=== PATIENT | female | born 1975 | race Caucasian/White ===

== ENCOUNTER 2016-08-17 18:57 | Inpatient (IN) | payer OTHER ==
[~2016-08-17] VITALS: Ht 170.2 cm; Wt 115.7 kg
[2016-08-17] VITALS (7 sets, daily range): BP systolic 111–132; BP diastolic 58–83; PULSE 85–95; RESP 14–24; O2SAT 97–98
[2016-08-17 19:09] LABS: BASOPHILS % (AUTO) 0.2 % (0-3); EOSINOPHILS % (AUTO) 3.1 % (0-5); MONOCYTES % (AUTO) 8.7 % (4-12); Mean Corpuscular Volume 84.5 fL (81-100); Platelet Count 295 bil/L (150-400)
--- NOTE | 2016-08-17 19:27 | ED.REPORT ---
HPI-Chest Pain 40 and Over Date of Service August 17, 2016 ED Provider: Keyon Cao MD 41 year old female with a history of HTN. hyperlipidemia, DM and former smoker who presents to the ER with waxing and waning chest pain that has been present since 0700 this AM. She describes this is 4/10 "heaviness" which improves with rest. The pain radiates to the neck and L arm. Pt has been ill for the next month. Additional symptoms include intermittent SOB, nausea, lightheadedness and dizziness. Pt has no hx of CAD. Pt was seen at urgent care and was referred to the ER. At urgent care she had a normal ECG. She was given 324 ASA and 3 spray SL nitro with moderate improvement in symptoms. Pt has family history of stroke. Nursing Notes Stated Complaint: CHEST PAIN Chief Complaint: Chest Pain Nursing Notes Reviewed: Yes Allergies: Coded Allergies: No Known Allergies (Unverified , 08/17/16) General Time Seen by MD: 19:09 Chief Complaint Chest pain Hx Obtained From: Patient, EMS Arrived By: Ambulance Sudden in Onset?: No Onset Occurred: 9 - 12 hours ago Symptom Duration: Waxes and wanes Location: : Chest left Quality: Painful Radiation: : Arm left: Jaw: Neck Severity: Current: Moderate Associated with: Reports: Nausea, Shortness of Breath Relieved by: Rest Similar Sx Previous: No Risk Factors )( CAD Risk Stratification Risk factors reviewed )( TAD Risk Stratification Risk factors reviewed )( PE Risk Stratification Risk factors reviewed Past Medical History Past Medical History Reports: Diabetes mellitus, Hyperlipidemia, Hypertension Past Surgical History No Smoking History Former Smoker Ambulatory Status Independent Review of Systems Basic Review of Systems Eyes: Vision NL, No discharge ENT: Hearing NL, No pain, No nasal congestion, No pharyngeal pain Constitutional: Denies: Fever Respiratory: Reports: Shortness of breath Cardiovascular: Reports: Chest pain GI: Reports: Nausea, Denies: Vomiting Neurologic: Reports: Dizziness, Lightheaded Complete sys rev & neg: except as marked. Physical Exam Initial Vital Signs Vital Signs (First) Date Time Temp Pulse Resp B/P Pulse Ox O2 Delivery O2 Flow Rate FiO2 08/17/16 19:05 37.0 92 14 113/59 97 Room Air Initial VS: Reviewed Head / Eyes: Atraumatic, Normocephalic, PERRL ENT: Mucous membranes moist, Conjunctiva normal, No scleral icterus Neck: Supple, Non-tender, Full range of motion Extremities: Vascular intact, Neuro intact, No swelling, No tenderness Skin: Warm, Dry, No cyanosis Neurologic: Alert, Oriented, Nonfocal Psychiatric: Mood/affect normal, Behavior normal, Normal thought content General/Constitutional: Awake, Alert Respiratory / Chest: Breath sounds NL, Breath sounds = bilat, No respiratory distress, No rales, No rhonchi, No wheezing, No stridor, No chest tenderness Cardiovascular: Heart rate NL, Regular rhythm, Heart sounds NL, No murmurs, Peripheral circulation NL, Pulses = bilaterally Abdomen: Soft, Non-tender Interpretation & Diagnostics Lab Results Interpretation Result Diagram: 08/17/16 1900 08/17/16 190 Test 08/17/16 19:00 White Blood Count 8.4th/mm3 (3.8-10.1) Red Blood Count 4.76mil/mm3 (3.90-5.20) Hemoglobin 13.8g/dL (12.0-15.6) Hematocrit 40.2% (35.0-46.0) Mean Corpuscular Volume 84.5fL (81-100) Mean Corpuscular Hemoglobin 29.0pg (27.0-35.0) Mean Corpuscular Hemoglobin Concent 34.3% (32.0-37.0) Red Cell Distribution Width 12.8% (12.3-15.4) Platelet Count 295bil/L (150-400) Neutrophils (%) (Auto) 51.0% (40-74) Lymphocytes (%) (Auto) 36.4% (14-46) Monocytes (%) (Auto) 8.7% (4-12) Eosinophils (%) (Auto) 3.1% (0-5) Basophils (%) (Auto) 0.2% (0-3) Sodium Level 134mEq/L (134-144) Potassium Level 3.9mEq/L (3.5-5.2) Chloride Level 94mEq/L (97-108) Carbon Dioxide Level 20mmol/L (18-29) Blood Urea Nitrogen 13mg/dL (6-24) Creatinine 0.71mg/dL (0.57-1.00) Estimat Glomerular Filtration Rate 129mL/min (>59) Glucose Level 307mg/dL (60-99) Calcium Level 9.9mg/dL (8.5-10.1) Magnesium Level 1.4mg/dL (1.6-2.6) Total Bilirubin 0.3mg/dL (0.0-1.2) Aspartate Amino Transf (AST/SGOT) 25U/L (0-50) Alanine Aminotransferase (ALT/SGPT) 20U/L (0-32) Alkaline Phosphatase 91U/L (25-150) Troponin T < 0.010ug/L (0.0-0.011) Total Protein 7.3g/dL (6.4-8.4) Albumin 4.1g/dL (3.4-5.0) Hold Red Top Tube Received (Received) General Lab Results Interp 1: Labs reviewed ECG Interpretation ECG Interpretation: St elevation in III and aVF, depressions in I, aVL and V2. Time: 19:14 Interpreted by: ED physician Normal ECG Interpretation: Normal rate (95) Abnormal T wave or ST segment: STEMI inferior wall Re-Eval/Medical Decision Med Decision/Clinical Course 41-year-old female history of hypertension, hyperlipidemia, diabetes, former smoker presenting with left-sided chest pain. Sent in from urgent care and receive aspirin in urgent care. Her EKG was reportedly without ST elevations at urgent care. On arrival she had ST elevations in the inferior leads. Interventional cardiology was consulted immediately and code STEMI was called. Patient was transferred emergently to cardiac [facility]. Heparin bolus and drip administered in the ER waiting [facility] per Cardiology recommendation. Time of Eval: 19:30 Re-Evaluation/Progress Note: Pt updated of abnormal ECG results. Consultation : Referral / Consult Name: Myron Astorga MD Consulted With: Cardiology Call Returned at: 19:34 Horse Riding Coach Or Instructor: Requested corn lab technician, Accepts admit Note: Agrees that this is a STEMI. Requested corn lab technician. Start Heparin bolus. Counseled Regarding: Diagnosis, Lab results, Need for admission Discharge & Departure Primary Impression: STEMI (ST elevation myocardial infarction) Involved coronary artery: unspecified coronary artery Qualified Code: I21.3 - ST elevation (STEMI) myocardial infarction of unspecified site Disposition: ADMITTED TO HOSPITAL Discharge Condition All VS Reviewed: Yes Crit Care Except Billable Proc Time Spent: 30-74 minutes Services Performed: Patient management by me, Time spent at bedside, Reviewing test results, Reviewing imaging, Discussing patient care, Documentation in record, Time with fam/surrogate Scribe Attestation Portions of this note were transcribed by Kirsten Gandhi. I, (Dr. Keyon Carlson) personally performed the history, physical exam and medical decision- making; I reviewed and confirmed the accuracy of the information in the transcribed note. Signed by: Kirsten Gandhi. Scribe, 08/17/2016, 1935 Keyon Cao MD August 17, 2016 19:27 Kirsten Gandhi August 17, 2016 19:36
[2016-08-17] MEDS ORDERED: Heparin 5,000 Unit/mL Inj ONE (19:34)
[2016-08-17] MEDS ORDERED: Heparin 25,000 Unit/500 mL 0.45% NS Premix IV ONE (19:34)
[2016-08-17] MEDS ORDERED: Heparin 5,000 Unit/mL Inj IVPUSH ONE (19:35)
[2016-08-17] MEDS ORDERED: Heparin 25K Unit/500mL 0.45 NS 25,000 UNIT in IV Premix 1 EACH IV ONE (19:35)
[2016-08-17 19:41] LABS: Magnesium 1.4 mg/dL (1.6-2.6)
[2016-08-17 19:47] LABS: TROPONIN T < 0.010 ug/L (0.0-0.011)
[2016-08-17] MEDS ORDERED: Heparin 1,000 Units/500 mL NS Premix IV ONE (19:48)
[2016-08-17] MEDS ORDERED: Heparin 1,000 Unit/mL 10 mL Inj ONE ×2 (19:49→21:04)
[2016-08-17] MEDS ORDERED: Nitroglycerin 50,000 mcg/250 mL D5W Premix IV ONE (19:49)
[2016-08-17] MEDS ORDERED: Heparin 5,000 Units/500 mL NS Premix IV ONE (19:49)
[2016-08-17] MEDS ORDERED: Heparin 10,000 Unit/1,000 mL NS Premix IV ONE (19:49)
[2016-08-17] MEDS ORDERED: Dextrose 5% 250 ML IV ONE (19:49)
[2016-08-17] MEDS ORDERED: NitroPRUSSIDE 25,000 mCg/mL 2 mL Inj IV ONE (19:49)
[2016-08-17] MEDS ORDERED: 0.9% Sodium Chloride 1,000 ML ONE (19:50)
[2016-08-17] MEDS ORDERED: Atropine 1 mg/10 mL (Code) Syringe ONE ×2 (20:18→21:20)
[2016-08-17] MEDS ORDERED: Phenylephrine/NS-PF 100 mCg/mL 5 mL Syringe IVPUSH ONE (20:18)
[2016-08-17] MEDS ORDERED: fentaNYL-PF 50 mCg/mL 2 mL Inj ONE ×5 (20:18→21:45)
[2016-08-17] MEDS ORDERED: Sodium Chloride LOK Flush 10 mL Syringe IVFLUSH PRN (23:15)
[2016-08-17] MEDS ORDERED: Atropine 1 mg/10 mL (Code) Syringe IVPUSH PRN (23:15)
[2016-08-17] MEDS ORDERED: Ondansetron 2 mg/mL 2 mL Inj IVPUSH PRN (23:15)
[2016-08-17] MEDS ORDERED: 0.9% Sodium Chloride 1,000 ML IV ONE (23:15)
[2016-08-18] VITALS (17 sets, daily range): BP systolic 88–118; BP diastolic 50–68; PULSE 67–87; RESP 15–21; O2SAT 96–99
[2016-08-18] MEDS ORDERED: Magnesium Sulfate 2 Gm/50 mL Water Premix IV ONE (00:38)
--- NOTE | 2016-08-18 00:39 | CS94 ---
[address] [address] DIAGNOSTIC CARDIAC CATHETERIZATION PATIENT: CARTER MARTE I : 1975 MR#: [id number] ADMIT: 08/17/2016 JOB ID: [id number] SERVICE DATE: August. PROCEDURE NOTE/CARDIAC CATHETERIZATION LABORATORY: CERTIFIED PHLEBOTOMY TECHNICIAN: Myron Astorga MD. PROCEDURE: 1. Coronary angiogram, emergent. 2. Left heart catheterization (LHC),LVED; and pullback. 3. Percutaneous coronary intervention (PCI), extensive stenting of diffusely diseased culprit RCA in the distal, mid, proximal and ostial segments using Xience Alpine CARLOS ENRIQUE (drug-eluting stents). CLINICAL DETAILS: This 41-year-old woman presented to the catheterization laboratory after she was transferred to the emergency department when she presented initially to the urgent care clinic with 12 hours of progressively severe retrosternal chest discomfort. On presentation, chest discomfort is intensity 4 on a scale of 10. Initial ECG in the urgent care clinic did not show ST elevation; but on arrival in the emergency department there is inferior ST elevation 2-3 mm with confirmatory reciprocal ST depression in leads L1 and aVL. She is otherwise clinically stable. RISK FACTORS: Include 11 years of insulin-dependent diabetes; as well as hypertension, hyperlipidemia; and cigarette smoking discontinued eight years ago. There is no prior history of heart disease. PROCEDURAL DETAILS: ECG was initially sent for review. Then, I came to see her emergently in the emergency department. I discussed the findings, recommendations and management considerations including the recommendation to proceed emergently to coronary angiogram for definitive diagnosis and to guide treatment options, including medical therapy anticipated, PCI or coronary bypass surgery if needed. We discussed the procedure, including possible risks and complications. We discussed bleeding, infection and blood clots; as well as injury to nerve, artery, vein or kidney (especially in view of her diabetes); and also arrhythmia, drug reaction or others. We discussed treatment as needed, including surgery, transfusion or pacemaker. We discussed more serious complications that can occur including stroke, heart attack, cardiac arrest, , emergency surgery including transfer for coronary bypass surgery. After discussion and questions, she signed informed consent to proceed. She was brought to the catheterization laboratory where she was prepped sterilely and draped. CORONARY ANGIOGRAM: Arterial access was obtained without difficulty in the right common femoral artery using fluoroscopic localization over the femoral head; and modified Seldinger technique to insert a 10 cm 6-Australian side-arm sheath. Catheters were advanced and exchanged over a long 0.035 inch J-tipped guidewire. First, the right coronary artery was imaged with a 6-Australian JR-4 guide. Then, after intervention the left coronary artery was imaged using a 6-Australian JL-4 diagnostic catheter. LHC: At the end of the procedure a 6-Australian pigtail catheter was advanced across the aortic valve into the left ventricle to measure LVED and pullback. No LV angiogram was done. PCI of distal, mid, proximal and ostial RCA: The diagnostic images were reviewed. Decision was made to proceed with emergent intervention to revascularize this severely, extensively, diffusely diseased culprit RCA artery (RUPA flow just less than RUPA-3). The patient had already received ASA 325 mg chewed; as well as heparin IV loading bolus; and heparin IV infusion. For the procedure she received prasugrel 60 mg loading dose p.o. Aliquots of NTG IC were used during the procedure. Predilatation: For intervention the 6-Australian JR-4 guide catheter already in place was used. The artery was tortuous but a BMW wire, 0.014 inches x 190 cm, could be placed in the PDA. A TREK RX balloon, 2.5 x15 mm, was inserted and inflated across the most severe proximal stenosis at 4 atmospheres. Regarding door to balloon time, note additional time required in the emergency department necessary for diagnosis. The PTCA balloon was then inflated multiple times in the diseased segments of the artery to maximum of 12 atmospheres. The artery and flow were improved. Stent: A first Xience Alpine CARLOS ENRIQUE, 2.5 x 18 mm, was inserted across the distal extent of the diseased artery past the acute margin and deployed at 18 atmospheres. Next, a second Xience Alpine CARLOS ENRIQUE, 2.75 x 33 mm, was inserted overlapping the first stent proximally and deployed at 18 atmospheres. Then, a third Xience Alpine CARLOS ENRIQUE, 3.0 x 12 mm, was inserted overlapping proximally and deployed at 18 atmospheres. The stent appeared to move distally from its intended point of deployment. Then, a fourth Xience Alpine CARLOS ENRIQUE, 3.0 x 15 mm, was deployed overlapping the prior stents proximally in the proximal RCA and deployed at 18 atmospheres. Finally, a final Xience CARLOS ERNIQUE 3.0 x 12 mm was deployed to cover the most proximal irregularity and the ostium, and deployed at 18 atmospheres. Postdilatation: The entire treated segment of RCA was then postdilated at high pressure using a TREK NC noncompliant balloon, 2.75 x 15 mm, with multiple inflations to a maximum 22 atmospheres. The completion angiograms show an excellent angiographic result with RUPA-3 flow; no residual lesion; and no angiographic complication evident. Procedure without difficulty. Patient tolerated the procedure well. No complications. A side-arm sheath angiogram showed excellent access in the right common femoral artery for closure device. Arterial hemostasis was achieved without difficulty using a StarClose clip. The patient had become chest pain free and clinically stable; and she was transferred from the catheterization laboratory to the CCU for ongoing care, including by the hospitalist team. I discussed the procedure findings and further management considerations with the patient, with her significant other and her family; and with the hospitalist service. FINDINGS: LMCA: Short. The left main coronary artery is intact without discrete lesions, but it appears small relative to the large LAD and LCX. The angiographic impression is diffuse 40% narrowing. LAD: No angiographic obstruction. The LAD is a large transapical vessel with moderate diffuse atherosclerosis without discrete lesions. Its distribution includes one moderate to large size proximal diagonal. The diagonal has 60% to 70% proximal and ostial tubular narrowing with RUPA-3 flow. LCX: 90% focal proximal lesion of large branching OM1. LCX is a large vessel; its distribution consists primarily of a large (3.02 to 3.5 mm) branching diagonal OM. RCA: Dominant. RUPA flow nearly 3 initially. The RCA is tortuous and severely extensively diffusely diseased including long diffuse proximal segment with maximum 99% stenosis; and a tubular 90% mid RCA lesion; and 80% early distal tubular lesion just past the acute margin. The ostium of the RCA appears to have a 90% lesion in some views; and there was a catheter damping on engaging the ostial RCA not relieved by NTG IC. The artery is overall medium-sized with small PDA and moderate posterolateral branch. LHC: LVED 24; and no systolic gradient on pullback across aortic valve. CONCLUSIONS: 1. PCI, extensive reconstruction of severe diffuse disease of distal, mid proximal and ostial RCA using Xience Alpine CARLOS ENRIQUE. 2. ACS, acute inferior STEMI; due to culprit subtotal occlusion of infarct-related RCA. 3. CAD (coronary artery disease), two-vessel CAD including RCA; and 90% focal proximal OM1 lesion. 4. LHC, elevated LVED. RECOMMENDATIONS: 1. ECASA, indefinitely. 2. Prasugrel, plan at least one year if well tolerated, including ongoing cardiology followup. Consider lifetime prasugrel if well tolerated in consideration of the extensively treated RCA. I discussed with the patient and her family the critical importance of mandatory prasugrel; and not to miss prasugrel for any reason without immediate cardiology consultation. 3. Echocardiogram. 4. OMT, guideline directed optimal medical therapy for coronary disease and for underlying risk factors, including aspirin, prasugrel, high-intensity statin, beta-radha and resume SONA inhibitor later after contrast.
[2016-08-18] MEDS ORDERED: Mag Sulf 2 Gm/50mL IV Premix(Mag < 1.6 & Creat > 2) IV ONE (00:45)
--- NOTE | 2016-08-18 00:59 | HP ---
[address] [address] HISTORY AND PHYSICAL PATIENT: CARTER MARTE I : 1975 MR#: [id number] ADMIT: 08/17/2016 JOB ID: [id number] CARDIOLOGY ADMISSION HISTORY AND PHYSICAL, INITIAL CRITICAL CARE EVALUATION (EMERGENCY DEPARTMENT): ADMITTING PHYSICIAN: Cardiology, Myron Astorga MD. PROBLEMS: 1. Acute coronary syndrome (ACS): a. Chest pain, severe ischemic retrosternal chest discomfort progressive and for over 12 hours. b. STEMI, acute inferior DC with inferior ST elevation and confirmatory reciprocal ST depression. 2. CAD risk factors: a. Diabetes, 11 years; insulin-dependent; and no other known diabetic sequelae. b. Hypertension, treated. c. Hyperlipidemia, treated. d. Cigarette smoking, prior cigarette smoker; stopped eight years ago. e. No family history of premature coronary disease. 3. Other problems: Morbid obesity CHIEF COMPLAINT: Chest pain. STEMI activation. HISTORY OF PRESENT ILLNESS: EMERGENCY DEPARTMENT PRESENTATION: This 41-year-old woman has no known heart disease or premonitory cardiac symptoms prior to onset of discomfort in her neck about 12 hours prior to her initial presentation to the urgent care clinic. She initially thought this was related to a cold that she had for the past week and wondered if it was a lymph node. The discomfort became progressively severe and radiated into her chest and left upper extremity. She noted associated diaphoresis (clammy), as well as some dyspnea, nausea and lightheadedness. Ultimately, she presented to the urgent care clinic and was then transferred to the emergency department with ongoing 4/10 chest discomfort. Her maximum chest discomfort had been severe. In the urgent care clinic and in the emergency department she received ASA 324 mg; as well as heparin IV bolus and heparin IV infusion. She was otherwise clinically stable. CARDIAC HISTORY: She has no prior known heart disease. She has no prior anginal symptoms. She has no symptoms of congestive heart failure such as nocturnal dyspnea or edema. She does have some chronic exertional dyspnea she attributes to deconditioning from her obesity. She has no history of arrhythmia or current symptoms of arrhythmia, including tachy, palpitation, presyncope or syncope. Regarding other possible underlying vascular disease, there is no history of CVA; and no current symptoms of TIA. No claudication. Regarding possible dual antiplatelet therapy, she has no current bleeding symptoms; no anticipated surgery; she states reliable to take mandatory medicines if needed. ALLERGIES: No known drug allergies. I elicit no history of allergy to medical contrast; or to seafood, fish, iodine or shellfish. MEDICATIONS: Recorded from the walk-in clinic and confirmed as much as she is able, include: 1. Diflucan 150 mg. 2. Fluoxetine 20 mg daily. 3. Levothyroxine 75 mcg daily. 4. Lisinopril 20 mg with hydrochlorothiazide 25 mg t.i.d. 5. Metformin 1000 mg q.a.m. and 500 mg q.p.m. (last dose 6 a.m. this morning.) 6. Metoprolol tartrate 25 mg b.i.d. 7. Novolin R 100 insulin, 18 units subcutaneous q.i.d. 8. Lipitor-dose unknown. 9. Toujeo SoloSTAR insulin per protocol. 10. She does not take aspirin regularly. PAST MEDICAL HISTORY: 1. History of bipolar disorder. 2. History of asthma, patient does not report asthma to me. 3. History of hypothyroidism. REVIEW OF SYSTEMS: I questioned her in the emergent setting about a 13 point review of systems, which is unremarkable, noncontributory or negative, except as noted including: No history of lung disorder, including asthma, wheezing or known COPD. No history of GI disorder, including indigestion, ulcer, hepatitis or jaundice. SOCIAL HISTORY: Cigarettes: She has smoked a pack a day for about eight years, and stopped about eight years ago, and does not report chronic sequelae of smoking. Alcohol: She reports little alcohol use. Family: She with significant other who is present, along with her mother. Work: Does not work. FAMILY HISTORY: She reports no family history of premature coronary artery disease. PHYSICAL EXAMINATION: General appearance: A pleasant morbidly obese woman who is uncomfortable with chest discomfort. Vital signs: Initially blood pressure 113/59, with heart rate 92, regular in sinus rhythm on telemetry. Respiratory rate 18 and nonlabored with a pulse oximeter 97% on room air. Afebrile. Weight 240-250 pounds. Neurologic and mental status: No overt focal neurologic defect noted. She is alert, oriented, appropriate and conversant. HEENT : PERRL, conjunctivae pink, sclerae not icteric. Mouth and mucous membranes intact with Mallampati 4. Neck: Carotid upstroke intact bilaterally without bruit. Jugular venous pressure difficult to assess due to habitus. No palpable thyromegaly. No palpable cervical lymphadenopathy. Lungs: Clear to auscultation bilaterally. Cardiac: No chest wall tenderness. Cardiac examination otherwise notable for regular rhythm, S4, and there is no loud murmur heard. Abdomen: Obese, but otherwise unremarkable without tenderness, mass, hepatosplenomegaly, or bruit of abdominal aortic aneurysm. Extremities: Trace to mild bilateral pretibial pitting noted. The pedal pulses are palpable bilaterally. DIAGNOSTIC STUDIES: Electrocardiogram: The ECG from the urgent care clinic shows sinus rhythm at [address]-T wave abnormalities including ST flattening and mild T-wave inversion inferolaterally. There is initially no ST-elevation. The admitting ECG in the emergency department is changed, showing 1-[address]-elevation greater in lead III than II, suggestive of RCA involvement; and accompanied by confirmatory reciprocal ST-depression in leads L1 and aVL. There are already small inferior Q-waves in L3 and AVF. Chest x-ray: Chest x-ray done post PCI shows mild cardiomegaly and there is no heart failure. LABORATORY: CBC includes WBC 8400 with hemoglobin 13.8, hematocrit 40.2, normal indices, and platelet count 245,000. Chemistries include potassium 3.9, CO2 20, BUN 13, creatinine 0.71, with estimated GFR 129, as well as glucose elevated to 307, with magnesium 1.4. LFT unremarkable. Initial troponin T less than 0.010. ASSESSMENT: I discussed the findings, impressions and management considerations with the patient, and later with her family, including significant other and mother; and with the emergency department staff; and with the hospitalist team including: Acute coronary syndrome with ST-elevation myocardial infarction with acute inferior myocardial infarction and ongoing moderately severe chest discomfort: She has had prolonged progressive chest discomfort throughout the day, then initially no ST-elevation on presentation to the urgent care clinic; and mild but clear ST-elevation on transfer to the emergency department. I discussed recommendation to proceed emergently with coronary angiogram for definitive diagnosis and to guide treatment options, including medical therapy; anticipated percutaneous coronary intervention; or coronary bypass surgery if needed. PLAN: 1. Coronary cardiac catheterization, emergent. 2. Echocardiogram. 3. Chest x-ray. 4. OMT, optimal guideline directed medical therapy for her anticipated coronary disease and underlying risk factors. 5. Consul hospitalist team including for management of her diabetes; and for careful hospital management including hydration post contrast.
[2016-08-18 01:56] LABS: Mean Corpuscular Hemoglobin 28.8 pg (27.0-35.0); Mean Corpuscular Volume 84.3 fL (81-100)
[2016-08-18] MEDS ORDERED: Glucose 40% Oral Gel 15 Gm Tube PO PRN (02:00)
[2016-08-18] MEDS ORDERED: Dextrose 10% 250 ML IV PRN (02:00)
[2016-08-18] MEDS: 0.9% Sodium Chloride 1,000 ML IV SCH ×3 (02:05→21:02)
[2016-08-18] MEDS: Insulin LISPRO 300 Unit/3 mL Inj SUBQ SCH ×5 (02:14→22:11)
--- NOTE | 2016-08-18 02:19 | PCM.CHPMED ---
Subjective Date of Service: August 18, 2016 Provider requesting consult: Myron Astorga MD Primary Physician: Admitting Physician: Myron Astorga MD Primary Care Physician: Nopcp Attending Physician: Myron Astorga MD Admit Status: From the Emergency Department Chief Complaint: Chief Complaint: STEMI History of Present Illness: Internal medicine consultation requested by Dr. Astorga of Cardiology Nkechi Martinez is a 41 year old woman with a PMH of DM2 on insulin, hypothyroidism, HTN, and Bipolar I who presented to the [facility] ED with acute chest pain and was found to have acute ST changes on ECG requiring emergent coronary catheterization. The official report of the patient's cath procedure is still pending, apparently the patient requires multiple stents. Dr. Astorga from cardiology who performed the procedure has consulted our service for assistance in managing the patient's insulin, medication, and fluid requirements. The patient reports that she takes Novolin 15U QID for short to intermediate coverage and Toujeo as long acting coverage in accordance to a protocol which she cannot recall and is not specifically spelled out in her outpatient records. She cannot recall when her last HA1c was and there are no lab values available in her outpatient records. At the time of evaluation the patient was recovering well post operatively without any complaints beyond feeling hot and sweaty. Review of Systems: Comprehensive ROS negative except as listed above in the [facility] PMH Past Medical History DM2 insulin requiring without known associated complications HTN Bipolar I Hypothyroidism Bedside Blood Glucose: 194 Surgical History Cardiac catheterization today: Report pending Home Medications Diflucan 150 mg tablet take 1 tablet by oral route once. Repeat in 4 days fluoxetine 20 mg capsule take 1 capsule by oral route every day levothyroxine 75 mcg tablet take 1 tablet by oral route every day lisinopril 20 mg-hydrochlorothiazide 25 mg tablet take 1 tablet by oral route every day metformin 1,000 mg tablet take 1 tablet by oral route in morning and .5 evening meals metoprolol tartrate 25 mg tablet take 1 tablet by oral route 2 times every day Novolin R 100 unit/mL injection solution take 18 unit by subcutaneous route 4 times every day pravastatin 10 mg tablet take 1 tablet by oral route every day Toujeo SoloStar 300 unit/mL (1.5 mL) subcutaneous insulin pen inject by subcutaneous route as per insulin protocol Allergies: Coded Allergies: No Known Allergies (Unverified , 08/17/16) Family History Family History Mother High Cholesterol and HTN Father with DM2 and arthritis Sister with Asthma Grandmother of stroke Social History Hx Alcohol Use: YesAlcoholic Drinks Per Day: rarelyHx Substance Use: No Smoking Status: Former Smoker Exam Vital Signs Vital Sign - Last Date Time Temp Pulse Resp B/P Pulse Ox O2 Delivery O2 Flow Rate FiO2 08/18/16 01:15 83 21 110/64 08/18/16 00:09 36.6 98 Room Air General: Alert, Oriented X3, Cooperative, Mild Distress (Secondary to recent stressful events) Head: Normal, Skull Deformity, Tenderness Eyes: PERRLA, EOMI, Scleral Anicteric, Scleral Icterus Mouth: Mucous Membr Moist/[place] Neck: Supple, No Thyromegaly Chest & Lungs: Other (Lungs CTA BL) Cardiovascular: Regular Rate/Rhythm, Normal S1, Normal S2, No Murmurs/Rubs/ Gallops Abdomen: Non-tender, Non-distended, No masses, No hepatosplenomegaly, Obese Extremities: No cyanosis/clubbing/edma bilat, Other (Groin catheter access site without sign of Hematoma) Neurological: Grossly Neurologically Intact Lab and Diagnostics Labs Item Value Date Time Red Blood Count 4.76 mil/mm3 08/17/161899 Neutrophils (%) (Auto) 51.0 % 08/17/161899 Lymphocytes (%) (Auto) 36.4 % 08/17/161899 Monocytes (%) (Auto) 8.7 % 08/17/161899 Eosinophils (%) (Auto) 3.1 % 08/17/161899 Basophils (%) (Auto) 0.2 % 08/17/161899 Estimat Glomerular Filtration Rate 129 mL/min 08/17/161899 Calcium Level 9.9 mg/dL 08/17/161899 Magnesium Level 1.4 mg/dL L 08/17/161899 Total Bilirubin 0.3 mg/dL 08/17/161899 Aspartate Amino Transf (AST/SGOT) 25 U/L 08/17/161899 Alanine Aminotransferase (ALT/SGPT) 20 U/L 08/17/161899 Alkaline Phosphatase 91 U/L 08/17/161899 Troponin T < 0.010 ug/L 08/17/161899 Total Protein 7.3 g/dL 08/17/161899 Albumin 4.1 g/dL 08/17/161899 Activated Partial Thromboplast Time 79.4 sec H 08/17/161953 Result Diagram: 08/18/16 0150 08/17/161899 12-lead ECG . Sinus rhythm . Inferior infarct, acute (RCA) . Prolonged QT interval Assessment & Plan Assessment Nkechi Martinez is a 41 year old woman who underwent emergent coronary catheterization and subsequent extensive stenting of diffusely diseased culprit RCA in the distal, mid, proximal and ostial segments using Xience Alpine CARLOS ENRIQUE ( drug-eluting stents). Dr. Astorga from Cardiology has consulted the internal medicine team for management of the patient's insulin regimen, post contrast fluid resuscitation, and other medication management. 1. STEMI s/p stenting, POA, acute. Active -Patient underwent extensive stenting of diffusely diseased culprit RCA in the distal, mid, proximal and ostial segments using Xience Alpine CARLOS ENRIQUE (drug-eluting stents). -NS @ 1 ml/kg/hr to attenuate the risk of post contrast nephropathy in a patient with underlying DM2 and HTN but no known pre-existing kidney disease -Will defer cardiac meds to Cardiology 2. DM2, POA, chronic. Active -Patient's usual regimen consists of Novolin 15U QID with underlying Toujeo administered according to a protocol the patient cannot recall and is not explicitly outlined in her outpatient records -Patient reports that her significant other will bring in her normal medication and the associated protocol in the AM -Lispro High dose correctional scale until her usual long-acting regimen can be clarified -Holding home Metformin due to recent contrast administration -HA1c Pending 3. Bipolar I, POA, chronic. Active -Holding patient's home Fluoxetine for the time being in order to preclude risk of adverse cardiac rhythm in recently stented patient -Fluoxetine has a relatively long half life of 1-3 days, thus withholding it's use in the immediate post cath period is unlikely to cause adverse effects -This should be restarted 08/19/16 4. Hypothyroidism, POA, chronic. Active -Continuing home Levothyroxine 75 mcg daily 5. HTN, POA, Chronic. Active -The patient's outpatient HTN med list includes Lisinopril/HCTZ 20-25 and Metoprolol 25 mg -The administration of the above will be deferred to Cardiology 6. Morbid Obesity, POA, chronic. Active -BMI 41.4 -Diabetic constant carb/heart healthy diet -Patient may benefit from diabetic counseling and education Code Status: FULL CODE Disposition: The timing of discharge will be deferred to cardiology but this will likely require an inpatient admission with greater than 2 midnights due to severity, complexity, and significant comorbidities. Problems: Pain Evaluation: Adequate Pain Control VTE Prophylaxis: Other (Patient immediately post Coronary catheterization) Resuscitation Status: CPR: Attempt Resuscitation Attending Statement The patient was seen and examined together with house staff on 08/18/2016 and I agree with the history, exam and plan as outlined in the note above. Tyrel Ansari DO August 18, 2016 02:19 Norma Benites DO August 18, 2016 03:26
[2016-08-18] MEDS ORDERED: LEVO100T6 PO (02:36)
[2016-08-18] MEDS ORDERED: METF-778 PO (02:36)
[2016-08-18] MEDS ORDERED: INSU100V27 SQ (02:36)
[2016-08-18] MEDS ORDERED: RANI150C4 PO (02:36)
[2016-08-18] MEDS ORDERED: LISI-608 PO (02:36)
[2016-08-18] MEDS ORDERED: INSU300I SQ (02:36)
[2016-08-18] MEDS ORDERED: METO25TA6 PO (02:36)
[2016-08-18] MEDS ORDERED: DULO30CA PO (02:36)
[2016-08-18] MEDS ORDERED: LIP40 PO (02:36)
[2016-08-18] MEDS ORDERED: AMT50T PO (02:36)
[2016-08-18 02:40] LABS: TROPONIN T 0.281 ug/L (0.0-0.011)
[2016-08-18 02:52] LABS: Creatine Kinase 118 U/L (21-215)
[2016-08-18] MEDS ORDERED: OXYC1TAB24 PO (02:52)
[2016-08-18] MEDS ORDERED: Insulin Human NPH-Reg 70-30 100 Unit/mL 10 ML Mdv SUBQ SCH (06:30)
[2016-08-18] MEDS ORDERED: Potassium Chloride Oral 20 mEq SR Tab(K 3 - 3.7 & Creat < 2) PO ONE (06:50)
--- NOTE | 2016-08-18 07:49 | DRSVH ---
PROCEDURE: X-RAY CHEST ONE VIEW, PORTABLE ([id number]) INDICATIONS: POST CATH PROCEDURE TECHNIQUE: One view of the chest was acquired. COMPARISON: September 12, 2007. FINDINGS: Surgical changes and devices: None. Lungs and pleura: No pleural effusions or pneumothorax. Lungs are clear. Mediastinum: Mediastinal contours appear normal. Heart size is normal. Bones and chest wall: No suspicious bony lesions. Overlying soft tissues appear unremarkable. IMPRESSION: Normal chest. Dictated by: James Wilder M.D. on 08/18/2016 at 7:47 Approved by: James Wilder M.D. on 08/18/2016 at 7:47
--- NOTE | 2016-08-18 12:01 | DRSVH ---
[facility] [address] [place] [address] Echocardiogram Report Name: CARTER MARTE IStudy Date: 08/18/2016 Height: 67 in Hospital Exam Location: [facility] Weight: 265 lb Gender: Female BSA: 2.3 m2 : 1975 Age: 41 yrs BP: 112/50 mmHg Reason For Study: S/P STENT Ordering Physician: Myron Astorga Performed By: Gypsy Marcos Referring Physician: DR. VILLAREAL ([facility]) Interpretation Summary Left ventricular wall thickness is mildly increased. Left ventricular systolic function is normal without focal wall motion abnormalities. The ejection fraction is estimated to be 65-70%. The right ventricle is normal in size and function. The right ventricular systolic pressure is estimated to be at least 19 mmHg assuming a right atrial pressure of 3 mmHg. Both atria are normal in size. There is mild mitral regurgitation. There is no other significant valvular heart disease. The aortic root is normal size. Procedure: A two-dimensional transthoracic echocardiogram with color flow and Doppler was performed. The apical views were difficult to obtain and are suboptimal in quality. The subcostal views were difficult to obtain and are suboptimal in quality. A contrast injection of Definity was performed to improve assessment of LV function. Contrast was injected into an intravenous site in the left arm. A total of 4 cc of contrast was given. There is no prior echocardiogram noted for this patient. The patient was in sinus during the exam. The patient did well with the Definity Contrast. Left Ventricle: The left ventricle is normal in size. Left ventricular wall thickness is mildly increased. Left ventricular systolic function is normal without focal wall motion abnormalities. The ejection fraction is estimated to be 65-70%. Spectral Doppler of the mitral valve shows a normal E/A wave ratio. Assessment of diastolic parameters indicates normal left ventricular diastolic function and normal filling pressures. Right Ventricle: The right ventricle is normal in size and function. Atria: Both atria are normal in size. There is no Doppler evidence for an atrial septal defect. Mitral Valve: The mitral valve leaflets appear normal. There is no evidence of stenosis, fluttering, or prolapse. There is mild mitral regurgitation. Aortic Valve: The aortic valve is not well visualized. The aortic valve is trileaflet. The aortic valve opens well. No aortic regurgitation is present. Tricuspid Valve: The tricuspid valve leaflets are thin and pliable. There is a trace or physiologic amount of tricuspid regurgitation. The right ventricular systolic pressure is estimated to be at least 19 mmHg assuming a right atrial pressure of 3 mmHg. Pulmonic Valve: The pulmonic valve is not well seen, but is grossly normal. There is no pulmonic valvular regurgitation. There is no other significant valvular heart disease. Great Vessels: The aortic root is normal size. The dimensions of the ascending aorta are normal. The pulmonary artery is normal size. The IVC is of normal diameter and collapses greater than 50% with a sniff. This suggests a low right atrial pressure of 3 mm Hg. Pericardium/ Pleura There is no pericardial effusion. There is no pleural effusion. MMode/2D Measurements & Calculations LVIDd: 4.5 cm LA dimension: 4.1 cm RA long axis LVOT diam: 2.2 cm LVIDs: 2.8 cm AoV Opening FS: 38.6 % LA A2 area: 15.5 cm RA area EPSS: 0.25 cm LA A4 area: 19.8 cm Ao root diam IVSd: 1.2 cm LA length (vol) : 18.0 cm LVPWd: 1.1 cm RA vol asc Aorta Diam LA vol: 47.7 ml : 53.5 ml LA vol index RA Ao Arch Diam (Prox : 23.5 mm2 Trans): 2.6 cm IVC diam: 1.7 cm LV espinoza. diameter/BSA LV sys. diameter/BSA (cm/m^2): 2.0 (cm/m^2): 1.2 Doppler Measurements & Calculations Ao V2 max MV E max venkatesh MV E/A: 1.6 TR max venkatesh : 194.2 cm/sec : 107.5 cm/sec Med Peak E' Venkatesh : 198.4 cm/sec Ao max PG MV A max venkatesh TR max PG : 15.1 mmHg : 65.6 cm/sec E/E' med: 15.3 : 15.8 mmHg Ao mean PG MV P1/2t: 68.2 msec Lat Peak E' Venkatesh PA V2 max : 99.5 cm/sec LVOT Max Venkatesh E/E' lat: 12.4 PA mean PG : 123.4 cm/sec E/e' average: 13.9 Pulm A Revs Dur PA Accel Time SALMA(I,D): 2.7 cm : 0.18 sec sev ratio MV A dur: 0.13 sec MV dec time MV P1/2t max venkatesh Ao V2 mean LV V1 max PG : 0.23 sec : 132.9 cm/sec MVA(P1/2t): 3.2 cm2 Ao V2 VTI: 35.4 cm LV V1 VTI SALMA(V,D): 2.4 cm2 : 25.0 cm PA V2 mean SALMA indexed to BSA Pulm A Revs Dur - MV A : 74.2 cm/sec (cm^2/m^2): 1.2 Dur: -0.01 msec Reading Physician:FADIA
--- NOTE | 2016-08-18 14:46 | PROG NOTE ---
[address] [address] PROGRESS NOTE PATIENT: CARTER MARTE I : 1975 MR#: [id number] ADMIT: 08/17/2016 JOB ID: [id number] DATE: 08/18/2016 CARDIOLOGY PROGRESS NOTE--FOLLOWUP INPATIENT EVALUATION: DATE OF EVALUATION: Thursday, August 18, 2016. EVALUATING PHYSICIAN: Cardiology--Myron Astorga MD. PROBLEMS: 1. Acute coronary syndrome (ACS): a. STEMI--acute inferior myocardial infarction. b. PCI--percutaneous coronary intervention to reconstruct extensive subtotal disease of ostial proximal and mid and distal right coronary artery. 2. Diabetes--insulin dependent. HOSPITAL DAY TWO: I saw the patient along with her significant other in the PCU on Cardiology rounds today, Thursday, August 18, 2016. She presented yesterday evening after 12 hours of chest discomfort. She had ST elevation on ECG. She had emergent PCI of patent but subtotally occluded RCA that was extensively severely diseased, requiring reconstruction including five drug-eluting stents from ostium to past the acute margin. Overnight and today, she is doing well. She had good urine output and the catheterization site at the right lower extremity is intact. She did have one episode of moderate left neck discomfort similar to her presenting symptoms that occurred 10 minutes after her 1st time up to the bathroom. ECG at that time was unchanged and unremarkable. MEDICATIONS: 1. Insulin sliding scale, including Lispro. 2. NTG sl once for the chest pain. 3. Metoprolol tartrate 25 mg b.i.d. 4. Prasugrel 10 mg daily. 5. Aspirin 81 mg daily. 6. Levothyroxine 75 mcg daily. 7. Lipitor 80 mg daily. OBJECTIVE: EXAMINATION: General appearance: She is in good spirits, smiling and comfortable. Vital signs: Vital signs have been stable with current blood pressure 100/50 and heart rate 74, regular, in sinus rhythm on telemetry. Heart and lungs: Intact, no murmur. No tenderness at the left neck where she had the discomfort. No mass. Extremities: The StarClose closure site at the right groin is intact with minor ecchymosis. No hematoma, bruit or pulsatile mass; and intact perfusion and small pedal pulses present. DIAGNOSTIC STUDIES: ELECTROCARDIOGRAM: Electrocardiogram after and again this morning during chest pain are much improved with no ST-elevation or reciprocal ST depression anymore and there are small Q-waves of inferior MS. Chest x-ray: The chest x-ray done after the procedure yesterday is unremarkable from a cardiac point of view with no heart failure. LABORATORY: I reviewed her labs including Potassium repleted to 4.1, creatinine decreased to 0.59 from 0.71. Hemoglobin A1c pending. Glucose 162 this morning. Cardiac markers include CK total 118 with troponin 0.281. Echocardiogram: I reviewed the echo images which show using Definity which show normal sized LV with vigorous LV systolic function with ejection fraction more than 65% and there is convincingly no wall motion defect. ASSESSMENT: I discussed the findings, impressions, and management considerations with her and her significant other and with the hospitalist team including: Acute coronary syndrome with ST-elevation myocardial infarction with inferior myocardial infarction and extensive reconstruction of diffusely diseased RCA: Overall she is stable, improved, and doing very well, making good progress. The single episode of jaw discomfort is unexpected and needs to be followed. Her medical regimen is good currently. Overall, of the echo is reassuring that she has not had major damage despite her late presentation after more than 12 hours of constant chest discomfort; but the artery was opened at the time of catheterization despite immediately preceding ST elevation on electrocardiogram. PLAN: Continue PCC status and plan re-ambulation today. Hospitalist input appreciated regarding general medical management especially her diabetes and insulin. Continue OMT-guideline directed optimal medical therapy for her coronary disease and underlying risk factors. I had a long discussion with them regarding post hospitalization care including: Not to lift more than 10 pounds for a week after the catheterization; the recommendation and importance of a rehab program which is available here (she lives in [place]); early followup with PCP within several days to a week; early followup in cardiology clinic in 7-10 days; and activity prescription including moderate progressive symptom-limited resumption of normal activities. We discussed ongoing followup of the severe lesion in the large OM vessel and the options for revascularization which include waiting, proceeding if angina, proceeding if stress test indicates; or planned staged intervention (which may be reasonable).
[2016-08-18 15:25] LABS: TROPONIN T 0.116 ug/L (0.0-0.011)
--- NOTE | 2016-08-18 16:32 | PCM.PNMED ---
Subjective Date of Service August 18, 2016 Subjective Nkechi Martinez is a 41 year old woman who underwent emergent coronary catheterization and subsequent extensive stenting of diffusely diseased culprit RCA in the distal, mid, proximal and ostial segments using Xience Alpine CARLOS ENRIQUE ( drug-eluting stents). Dr. Astorga from Cardiology has consulted the internal medicine team for management of the patient's insulin regimen, post contrast fluid resuscitation, and other medication management. Hospital day #2. Overnight: no acute events reported. Today: Patient states she is overall feeling well but does continue to have some diaphoresis. She denies any chest pain, fevers, chills, palpitations. The remainder of the review of systems is negative except as noted above. Exam Vital Signs Vital Sign - Last Date Time Temp Pulse Resp B/P Pulse Ox O2 Delivery O2 Flow Rate FiO2 08/18/16 10:40 67 18 112/50 97 Room Air 08/18/16 07:41 36.5 Intake and Output 08/17/16 08/17/16 08/18/16 Cumulative From/Thru 15:00 23:00 07:00 08/17/16 19:05 - 08/18/16 06:13 Intake Total 2855 ml 2855 ml Output Total 1750 ml 1750 ml Balance 1105 ml 1105 ml Intake Oral 2080 ml 2080 ml IV Total 775 ml 775 ml Output Urine Total 1750 ml 1750 ml # Bowel Movements 0 0 Exam General: Alert, Oriented X3, Cooperative, in no acute distress. Head: Normal, Skull Deformity, Tenderness Eyes: PERRLA, EOMI, Scleral Anicteric, Scleral Icterus Mouth: Mucous Membr Moist/[place] Neck: Supple, No Thyromegaly Chest & Lungs: clear to auscultation bilaterally, although difficult Cardiovascular: Regular Rate/Rhythm, Normal S1, Normal S2, No Murmurs/Rubs/ Gallops Abdomen: Non-tender, Non-distended, No masses, No hepatosplenomegaly, Obese Extremities: No cyanosis/clubbing/edma bilat, Other (Groin catheter access site without sign of Hematoma) Neurological: Grossly Neurologically Intact IVs and Medications Medications Reviewed: Medications were reviewed in detail Lab and Diagnostics Result Diagram: 08/18/1614908/18/16 015 Cardiac Echo Impressions Interpretation Summary Left ventricular wall thickness is mildly increased. Left ventricular systolic function is normal without focal wall motion abnormalities. The ejection fraction is estimated to be 65-70%. The right ventricle is normal in size and function. The right ventricular systolic pressure is estimated to be at least 19 mmHg assuming a right atrial pressure of 3 mmHg. Both atria are normal in size. There is mild mitral regurgitation. There is no other significant valvular heart disease. The aortic root is normal size. Assessment & Plan Nkechi Martinez is a 41 year old woman who underwent emergent coronary catheterization and subsequent extensive stenting of diffusely diseased culprit RCA in the distal, mid, proximal and ostial segments using Xience Alpine CARLOS ENRIQUE ( drug-eluting stents). Dr. Astorga from Cardiology has consulted the internal medicine team for management of the patient's insulin regimen, post contrast fluid resuscitation, and other medication management. Hospital day #2. 1. STEMI s/p stenting, POA, acute. Active -Patient underwent extensive stenting of diffusely diseased culprit RCA in the distal, mid, proximal and ostial segments using Xience Alpine CARLOS ENRIQUE (drug-eluting stents). -NS @ 1 ml/kg/hr to attenuate the risk of post contrast nephropathy in a patient with underlying DM2 and HTN but no known pre-existing kidney disease -Will defer cardiac meds to Cardiology 2. DM2, POA, chronic. Active -Patient's usual regimen consists of Novolin 15U QID with underlying Toujeo administered according to a protocol the patient cannot recall and is not explicitly outlined in her outpatient records -Patient reports that her significant other will bring in her normal medication and the associated protocol in the AM -Lispro High dose correctional scale until her usual long-acting regimen can be clarified -Holding home Metformin due to recent contrast administration -HA1c Pending 3. Bipolar I, POA, chronic. Active -Holding patient's home Fluoxetine for the time being in order to preclude risk of adverse cardiac rhythm in recently stented patient -Fluoxetine has a relatively long half life of 1-3 days, thus withholding it's use in the immediate post cath period is unlikely to cause adverse effects -This should be restarted 08/19/16 4. Hypothyroidism, POA, chronic. Active -Continuing home Levothyroxine 75 mcg daily 5. HTN, POA, Chronic. Active -The patient's outpatient HTN med list includes Lisinopril/HCTZ 20-25 and Metoprolol 25 mg -The administration of the above will be deferred to Cardiology 6. Morbid Obesity, POA, chronic. Active -BMI 41.4 -Diabetic constant carb/heart healthy diet -Patient may benefit from diabetic counseling and education Code Status: FULL CODE Disposition: The timing of discharge will be deferred to cardiology but this will likely require an inpatient admission with greater than 2 midnights due to severity, complexity, and significant comorbidities. Pain Evaluation: Adequate Pain Control VTE Prophylaxis: Other (Patient immediately post Coronary catheterization) Resuscitation Status: CPR: Attempt Resuscitation Attending Statement Patient was seen and examined with Dr. Melo. Chart was reviewed and agree with the above progress note. Lorena Melo DO August 18, 2016 11:40 Michael Williamson MD August 18, 2016 16:32
[2016-08-18 19:40] LABS: TROPONIN T 0.095 ug/L (0.0-0.011)
[2016-08-19] VITALS (7 sets, daily range): BP systolic 109–144; BP diastolic 61–87; PULSE 62–82; RESP 16–18; O2SAT 96–98
[2016-08-19] MEDS: 0.9% Sodium Chloride 1,000 ML IV SCH ×3 (03:33→19:19)
[2016-08-19] MEDS: Insulin LISPRO 300 Unit/3 mL Inj SUBQ SCH ×4 (09:05→22:12)
--- NOTE | 2016-08-19 16:46 | PCM.PNMED ---
Subjective Date of Service August 19, 2016 Subjective Nkechi Martinez is a 41 year old woman who underwent emergent coronary catheterization and subsequent extensive stenting of diffusely diseased culprit RCA in the distal, mid, proximal and ostial segments using Xience Alpine CARLOS ENRIQUE ( drug-eluting stents). Dr. Astorga from Cardiology has consulted the internal medicine team for management of the patient's insulin regimen, post contrast fluid resuscitation, and other medication management. Patient is doing well. Her blood sugar is running around 200. She is taking Lantus 65 units daily at home. Her diet is different at home than in the hospital. Patient will resume her home Lantus after discharge. In the meantime patient is still in the hospital he will continue with insulin sliding scale. Exam Vital Signs Vital Sign - Last Date Time Temp Pulse Resp B/P Pulse Ox O2 Delivery O2 Flow Rate FiO2 08/19/16 15:48 36.9 66 16 109/61 98 Room Air Intake and Output 08/18/16 08/18/16 08/19/16 Cumulative From/Thru 15:00 23:00 07:00 08/17/16 19:05 - 08/19/16 05:41 Intake Total 3313 ml 1262 ml 7430 ml Output Total 1850 ml 3600 ml Balance 1463 ml 1262 ml 3830 ml Intake Oral 1836 ml 200 ml 4116 ml IV Total 1477 ml 1062 ml 3314 ml Output Urine Total 1850 ml 3600 ml # Bowel Movements 0 Exam PHYSICAL EXAM: GENERAL: Alert, not in distress, cooperative HEAD: atraumatic, normocephalic, no bruises. EYES: ROX, EOMI, anicteric, able to fully open and close eyelids SKIN: Skin color normal, turgor normal No visible rashes or lesions. EAR, NOSE, MOUTH, THROAT: Lips, oral mucosa, tongue gums, oropharynx is moist, pink, no lesions. Ears normal appearance, no lesions. NECK: no jugulovenous distention, no carotid bruits, carotid pulse normal contour, No carotid bruit, supple, no enlarged lymph nodes appreciated; ROM normal. RESPIRATORY: Lungs clear to auscultation. Good diaphragmatic excursion. Normal percussion sound. CARDIAC: normal S1 and S2; no rubs, murmurs, or gallops; regular rate and rhythm ABDOMEN: Abdomen soft,non-tender. BS normal. No masses or organomegaly. MUSCULOSKELETAL: ROM full, muscles are not tender EXTREMITIES:no pitting edema in LE, no deformities, clubbing or skin discoloration. NEURO: Alert, oriented X 3, Sensation grossly intact., Cranial nerves II-XII intact, Grossly normal motor function. PULSES: 2+ radial, 2+ posterial tibial, 2+ dorsalis pedis, 2+ carotid REVIEW OF SYSTEMS: GENERAL:+ malaise, no fevers., SEE HPI HEENT: Negative for frequent or significant headaches All other reviewed and negative other than HPI. Lab and Diagnostics Result Diagram: 08/18/16 0150 08/19/16 0420 Cardiac Echo Impressions Interpretation Summary Left ventricular wall thickness is mildly increased. Left ventricular systolic function is normal without focal wall motion abnormalities. The ejection fraction is estimated to be 65-70%. The right ventricle is normal in size and function. The right ventricular systolic pressure is estimated to be at least 19 mmHg assuming a right atrial pressure of 3 mmHg. Both atria are normal in size. There is mild mitral regurgitation. There is no other significant valvular heart disease. The aortic root is normal size. Assessment & Plan Nkechi Martinez is a 41 year old woman who underwent emergent coronary catheterization and subsequent extensive stenting of diffusely diseased culprit RCA in the distal, mid, proximal and ostial segments using Xience Alpine CARLOS ENRIQUE ( drug-eluting stents). Dr. Astorga from Cardiology has consulted the internal medicine team for management of the patient's insulin regimen, post contrast fluid resuscitation, and other medication management. Hospital day #2. 1. STEMI s/p stenting, POA - stable -Patient underwent extensive stenting of diffusely diseased culprit RCA in the distal, mid, proximal and ostial segments using Xience Alpine CARLOS ENRIQUE (drug-eluting stents). -Will defer cardiac meds to Cardiology DM2, POA, chronic. Active - Stable - Patient takes 65 units of Lantus in the morning and ~ 10 units of Novolin 3 times daily with meals. Her diet is different at home than here. - Continue with current meds, Accu-Cheks, diabetic diet. Adjust insulin as needed. Bipolar I - Stable Hypothyroidism, POA, chronic. Active -Continuing home Levothyroxine 75 mcg daily HTN - Stable - Continue with current meds Morbid Obesity, POA, chronic. Active -BMI 41.4 -Diabetic constant carb/heart healthy diet Code Status: FULL CODE Disposition: The timing of discharge will be deferred to cardiology but this will likely require an inpatient admission with greater than 2 midnights due to severity, complexity, and significant comorbidities. VTE Prophylaxis: Other (Patient immediately post Coronary catheterization) Resuscitation Status: CPR: Attempt Resuscitation Russ Zuleta MD August 19, 2016 16:46 will likely require an inpatient admission with greater than 2 midnights due to severity, complexity, and significant comorbidities. VTE Prophylaxis: Other (Patient immediately post Coronary catheterization) Resuscitation Status: CPR: Attempt Resuscitation Russ Zuleta MD August 19, 2016 16:46
[2016-08-20 00:32] VITALS: PULSE 78
--- NOTE | 2016-08-20 01:31 | PROG NOTE ---
[address] [address] PROGRESS NOTE PATIENT: CARTER MARTE I : 1975 MR#: [id number] ADMIT: 08/17/2016 JOB ID: [id number] CARDIOLOGY PROGRESS NOTE/FOLLOW UP INPATIENT EVALUATION: DATE: 08/19/2016. PHYSICIAN: Cardiology--Myron Astorga MD PROBLEMS: ACS with inferior STEMI, with PCI of culprit diffusely diseased RCA. HOSPITAL DAY THREE: I saw this 41-year-old, insulin-dependent, diabetic woman, on Cardiology rounds today, Sunday, August 19, 2016, in her room on the PCU unit after she was admitted two days ago with over 12 hours of chest pain, inferior and acute inferior IA, treated with extensive PCI of the distal mid proximal and ostial RCA. Yesterday, she had not ambulated much. She was very fatigued and felt generally unwell after her critical illness the day before. Also, we were concerned by ongoing mild neck discomfort. There were no clear signs of ongoing ischemia and the ECG was repeatedly reassuring, as were her cardiac enzymes. The neck discomfort was part of her initial symptom complex, but also was somewhat atypical in that it had been present for several weeks and she had attributed it initially to a recent bad URI she had. Today, she tells me she feels much, much better. She has ambulated without difficulty. The neck discomfort cleared up and has not bothered her since for almost 24 hours now. I reviewed her medications with her. OBJECTIVE: EXAMINATION: Her vital signs are satisfactory. She has continued good urine output after contrast. Her right groin is visually intact with minimal ecchymosis. LABORATORY: Laboratories, including creatinine, are intact, and her cardiac enzymes have been down trending after peak troponin-T 0.281. Interestingly, her total CK was never above normal. ASSESSMENT: I discussed these findings, impressions, management considerations with her (and other family present today) including: Acute coronary syndrome (ACS) with inferior myocardial infarction and percutaneous coronary intervention (PCI): She has turned the corner and doing very well now. Anticipate discharge in the a.m. We reviewed her medicines including mandatory Plavix and post infarct care, as we had yesterday. I answered her questions. PLAN: 1. Anticipate discharge in the a.m. 2. Continue optimal medical therapy. 3. Diabetes--I discussed with her the consideration of reassessing her diabetes control and consideration of a specialist endocrinology consultation including in view of her moderately elevated A1c which is 8.7.
[2016-08-20 02:59] VITALS: BP 125/77; PULSE 64; RESP 22; O2SAT 95
[2016-08-20] MEDS: 0.9% Sodium Chloride 1,000 ML IV SCH ×2 (04:05→12:25)
[2016-08-20 07:24] VITALS: BP 131/73; PULSE 64; RESP 16; O2SAT 99
[2016-08-20] MEDS ORDERED: Insulin GLARgine 100 Unit/mL Syringe SUBQ SCH (09:00)
[2016-08-20] MEDS: Insulin LISPRO 300 Unit/3 mL Inj SUBQ SCH ×2 (09:07→12:34)
[2016-08-20 09:54] VITALS: PULSE 66
[2016-08-20 12:20] VITALS: BP 113/75; PULSE 65; RESP 15; O2SAT 97
--- NOTE | 2016-08-20 12:35 | PCM.DIMED ---
Discharge Instructions Date of Service August 20, 2016 Dates of Hospitalization August 17, 2016 at 19:50 Discharge Diagnosis Discharge Diagnosis CAD, acute inferior Miocardial Infarction, s/p DESx5 placements to RCA, Hypertension, Hyperlipidemia Medication Instructions Please take all medications as prescribed. Please make sure that you take Effient (prasugrel) every day for at least one year for sure, but we recommend to take it indefinitely. Please restart metformin on 08/21/2016. I stopped your amitriptyline and lisinopril/HCTZ I started you on lisinopril 5 mg daily Diet Low fat, Low Sodium, Heart Healthy, Diabetic Activity Other (see below) Call your provider Shortness of breath, Bleeding, Chest pain Patient Instructions You can take shower starting from today, do not soak in bath tub for one week; No heavy lifting, no more than 7-10 lb for 1 week for sure, generally avoid heavy lifting; be physically active as tolerated, but do not overdo Follow-up plan Follow up with your PCP in regard of your diabetes. Follow-up with PCP in: 1 week Provider: Gaurang Chavez MD Follow-up in: 2 weeks Additional Information Check BMP in one week Melvin Guerrero PA-C August 20, 2016 12:35
[2016-08-20] MEDS ORDERED: PRAS10TA5 PO (12:47)
[2016-08-20] MEDS ORDERED: LISI-571 PO (12:47)
[2016-08-20] MEDS ORDERED: ASPI81TA3 PO (12:47)
--- NOTE | 2016-08-20 12:55 | PCM.DC.MED ---
Discharge Summary Date of Service August 20, 2016 Dates of Hospitalization Date of Hospital Admission August 17, 2016 at 19:50 Date of Discharge: August 20, 2016 Providers: Admitting Physician: Myron Astorga MD Primary Care Physician: Yuliana Attending Physician: Myron Astorga MD Diagnosis at Time of Discharge Diagnosis at Time of Discharge CAD, acute inferior Miocardial Infarction, s/p DESx5 placements to RCA, Hypertension, Hyperlipidemia Procedures Cardiac Echo Impression Interpretation Summary Left ventricular wall thickness is mildly increased. Left ventricular systolic function is normal without focal wall motion abnormalities. The ejection fraction is estimated to be 65-70%. The right ventricle is normal in size and function. The right ventricular systolic pressure is estimated to be at least 19 mmHg assuming a right atrial pressure of 3 mmHg. Both atria are normal in size. There is mild mitral regurgitation. There is no other significant valvular heart disease. The aortic root is normal size. Brief History This is a pleasant 41 y/o lady with h/o DM, HTN, Hyperlipidemia who was admitted to [facility] with acute inferior STEMI. Hospital Course She had emergent coronary angiography which showed subtotal occlusion of infarct -related RCA and she and had PCI, extensive reconstruction of severe diffuse disease of distal, mid proximal and ostial RCA using Xience Alpine CARLOS ENRIQUE. For more details please refer to Spindle Repairer Dr. Astorga's procedure report. She also had 90% focal proximal OM1 lesion. In regard of this Spindle Repairer Dr. Astorga recommended to address it later either after doing stress test or directly proceed with planned staged intervention. He explained all of this to the patient, and I again explained all of this today. She was started on Prasugrel with the plan at least one year if well tolerated. It also was recommended to consider lifetime Prasugrel if well tolerated in consideration of the extensively treated RCA. ECHO from 08/18/2016 showed preserved cardiac function with LV EF 65-70%, no WMA , no significant valvular abnormalities. The patient is doing well. She denies having any chest discomfort, or SOB. She does not have symptoms of nocturnal pulmonary congestion. She ambulates freely. Denies pain in right groin area (cardiac cath access area). Right groin area is slightly tender with palpation, no bleeding, no hematoma, no bruits with auscultation. On telemetry: sinus rhythm with HR in 60s -70s bpm, no dysrhythmia. I advised to restart metformin on 08/21/2016. I stopped her amitriptyline and lisinopril/HCTZ. I started her on lisinopril 5 mg daily Medications on discharge are below. ADDENDUM from 08/20/2016: After the patient was discharged, I got a call from [facility] in [place] stating that her insurance does not cover Prasugrel (Effient), and it is very expensive for the patient to pay for it. After discussing this matter with Spindle Repairer Dr. Astorga, per his recommendation, I prescribed via phone Clopidogrel 75 mg daily, 30 tab, 11 refills. I explained to pharmacist that the patient needs Effient. They are going to fax us papers for PA. The case and management were discussed and coordinated with Spindle Repairer Dr. Astorga. Exam Vital Signs (Last) Date Time Temp Pulse Resp B/P Pulse Ox O2 Delivery O2 Flow Rate FiO2 08/20/16 12:20 36.9 65 15 113/75 97 Room Air Exam General: no ACD EENT: MMM, sclera unicteric Neck: supple, no thyromegaly Pulmo: normal breathing sounds bilaterally, no crackles, no wheezing Cardio: RRR, normal S1 and S2, no murmur appreciated Abdomen: nontender with palpation Extremities: no LE edema Neuro: A&Ox3, no gross abnormalities Test 08/17/16 19:00 08/17/16 19:54 08/18/16 01:50 08/18/16 18:30 Neutrophils (%) (Auto) 51.0% (40-74) Lymphocytes (%) (Auto) 36.4% (14-46) Monocytes (%) (Auto) 8.7% (4-12) Eosinophils (%) (Auto) 3.1% (0-5) Basophils (%) (Auto) 0.2% (0-3) Total Bilirubin 0.3mg/dL (0.0-1.2) Aspartate Amino Transf (AST/SGOT) 25U/L (0-50) Alanine Aminotransferase (ALT/SGPT) 20U/L (0-32) Alkaline Phosphatase 91U/L (25-150) Total Protein 7.3g/dL (6.4-8.4) Albumin 4.1g/dL (3.4-5.0) Hold Red Top Tube Received (Received) Hold Purple Top Tube Received (Received) Hold [place] Top Tube Received (Received) Hold [place] Top Tube Received (Received) White Blood Count 9.0th/mm3 (3.8-10.1) Red Blood Count 4.27mil/mm3 (3.90-5.20) Hemoglobin 12.3g/dL (12.0-15.6) Hematocrit 36.0% (35.0-46.0) Mean Corpuscular Volume 84.3fL (81-100) Mean Corpuscular Hemoglobin 28.8pg (27.0-35.0) Mean Corpuscular Hemoglobin Concent 34.2% (32.0-37.0) Red Cell Distribution Width 12.7% (12.3-15.4) Platelet Count 270bil/L (150-400) Activated Partial Thromboplast Time 28.6sec (22.8-33.0) Hemoglobin A1c 11.9% (4.8-5.6) Magnesium Level 1.8mg/dL (1.6-2.6) Total Creatine Kinase 106U/L (21-215) Creatine Kinase MB 4.8ng/mL (0.0-5.3) Creatine Kinase MB % 0.5% (0.0-5.0) Troponin T 0.095ug/L (0.0-0.011) Test 08/20/16 03:30 Sodium Level 136mEq/L (134-144) Potassium Level 4.3mEq/L (3.5-5.2) Chloride Level 99mEq/L (97-108) Carbon Dioxide Level 20mmol/L (18-29) Blood Urea Nitrogen 13mg/dL (6-24) Creatinine 0.76mg/dL (0.57-1.00) Estimat Glomerular Filtration Rate 119mL/min (>59) Glucose Level 237mg/dL (60-99) Calcium Level 9.1mg/dL (8.5-10.1) Discharge Medications Discharge Medications Aspirin Chew (Aspirin Chew) 81 Mg Chew 81 MG PO DAILY Prescribed by: ANA HADDAD, LEO Atorvastatin (Lipitor) 40 Mg Tablet 40 MG PO HS (Reported) Duloxetine (Cymbalta) 30 Mg Capsule.dr 30 MG PO HS (Reported) Insulin Glargine,Hum.rec.anlog (Touhilary Solostar) 300 Unit/Ml (1.5 Ml) Insuln.pen 65 UNIT SQ QAM (Reported) Levothyroxine (Levothyroxine) 100 Mcg Tablet 100 MCG PO QAM (Reported) Lisinopril (Lisinopril) 5 Mg Tablet 5 MG PO DAILY Prescribed by: LEO BLANC Metformin HCl (Metformin HCl ER) 1,000 Mg [id number] 1,000 MG PO BIDWM (Reported ) Metoprolol Tartrate (Metoprolol Tartrate) 25 Mg Tablet 25 MG PO BID (Reported) Prasugrel HCl (Effient) 10 Mg Tablet 10 MG PO DAILY Prescribed by: LEO BLANC Ranitidine (Ranitidine) 150 Mg Capsule 150 MG PO QAM (Reported) As needed Insulin Regular, Human (Novolin-R U100 Insulin Vial) 100 Unit/1 Ml Vial 15 UNIT SQ TID PRN PRN hyperglycemia (Reported) oxyCODONE-Acetaminophen 5-325 mg (oxyCODONE-Acetaminophen 5-325 mg) 1 Each Tablet 1 TAB PO Q6H PRN PRN For Pain (Reported) Additional med instructions Please take all medications as prescribed. Please make sure that you take Effient (prasugrel) every day for at least one year for sure, but we recommend to take it indefinitely. Followup Plan Follow-up plan Follow up with your PCP in regard of your diabetes. Discharge Diet: Low fat, Low Sodium, Heart Healthy, Diabetic Discharge Activity: Other (see below) Patient Instructions You can take shower starting from today, do not soak in bath tub for one week; No heavy lifting, no more than 7-10 lb for 1 week for sure, generally avoid heavy lifting; be physically active as tolerated, but do not overdo Follow-up with PCP in: 1 week Provider: Gaurang Chavez MD Follow-up in: 2 weeks Ana Haddad PA-C August 20, 2016 12:55 Patient Instructions You can take shower starting from today, do not soak in bath tub for one week; No heavy lifting, no more than 7-10 lb for 1 week for sure, generally avoid heavy lifting; be physically active as tolerated, but do not overdo Follow-up with PCP in: 1 week Provider: Gaurang Chavez MD Follow-up in: 2 weeks Ana Haddad PA-C August 20, 2016 12:55
--- NOTE | 2016-08-20 18:02 | PCM.PNMED ---
Subjective Date of Service August 20, 2016 Subjective Consultation progress note Nkechi Martinez is a 41 year old woman who underwent emergent coronary catheterization and subsequent extensive stenting of diffusely diseased culprit RCA in the distal, mid, proximal and ostial segments using Xience Alpine CARLOS ENRIQUE ( drug-eluting stents). Dr. Astorga from Cardiology has consulted the internal medicine team for management of the patient's insulin regimen, post contrast fluid resuscitation, and other medication management. Patient is doing well and was discharged by cardiology. Patient will resume her home Lantus after discharge. Exam Vital Signs Vital Sign - Last Date Time Temp Pulse Resp B/P Pulse Ox O2 Delivery O2 Flow Rate FiO2 08/20/16 12:20 36.9 65 15 113/75 97 Room Air Intake and Output 08/19/16 08/19/16 08/20/16 Cumulative From/Thru 14:59 22:59 06:59 08/17/16 19:05 - 08/20/16 06:49 Intake Total 2100 ml 20 ml 9550 ml Output Total 3600 ml Balance 2100 ml 20 ml 5950 ml Intake Oral 2080 ml 6196 ml IV Total 20 ml 20 ml 3354 ml Output Urine Total 3600 ml # Voids 6 6 # Bowel Movements 1 1 Exam GENERAL: Alert, not in distress, cooperative HEAD: atraumatic, normocephalic, no bruises. EYES: ROX, EOMI, anicteric, able to fully open and close eyelids SKIN: Skin color normal, turgor normal No visible rashes or lesions. EAR, NOSE, MOUTH, THROAT: Lips, oral mucosa, tongue gums, oropharynx is moist, pink, no lesions. Ears normal appearance, no lesions. NECK: no jugulovenous distention, no carotid bruits, carotid pulse normal contour, No carotid bruit, supple, no enlarged lymph nodes appreciated; ROM normal. RESPIRATORY: Lungs clear to auscultation. Good diaphragmatic excursion. Normal percussion sound. CARDIAC: normal S1 and S2; no rubs, murmurs, or gallops; regular rate and rhythm ABDOMEN: Abdomen soft,non-tender. BS normal. No masses or organomegaly. MUSCULOSKELETAL: ROM full, muscles are not tender EXTREMITIES:no pitting edema in LE, no deformities, clubbing or skin discoloration. NEURO: Alert, oriented X 3, Sensation grossly intact., Cranial nerves II-XII intact, Grossly normal motor function. PULSES: 2+ radial, 2+ posterial tibial, 2+ dorsalis pedis, 2+ carotid IVs and Medications Medications Reviewed: Medications were reviewed in detail Lab and Diagnostics Result Diagram: 08/18/16 0150 08/20/16 0330 Cardiac Echo Impressions Interpretation Summary Left ventricular wall thickness is mildly increased. Left ventricular systolic function is normal without focal wall motion abnormalities. The ejection fraction is estimated to be 65-70%. The right ventricle is normal in size and function. The right ventricular systolic pressure is estimated to be at least 19 mmHg assuming a right atrial pressure of 3 mmHg. Both atria are normal in size. There is mild mitral regurgitation. There is no other significant valvular heart disease. The aortic root is normal size. Assessment & Plan Nkechi Martinez is a 41 year old woman who underwent emergent coronary catheterization and subsequent extensive stenting of diffusely diseased culprit RCA in the distal, mid, proximal and ostial segments using Xience Alpine CARLOS ENRIQUE ( drug-eluting stents). Dr. Astorga from Cardiology has consulted the internal medicine team for management of the patient's insulin regimen, post contrast fluid resuscitation, and other medication management. Hospital day #2. STEMI s/p stenting, POA -stable -Patient underwent extensive stenting of diffusely diseased culprit RCA in the distal, mid, proximal and ostial segments using Xience Alpine CARLOS ENRIQUE (drug-eluting stents). -Will defer cardiac meds to Cardiology DM2, POA, chronic. Active - Stable - Patient takes 65 units of Lantus in the morning and ~ 10 units of Novolin 3 times daily with meals. Her diet is different at home than here. - Continue with current meds, Accu-Cheks, diabetic diet. Adjust insulin as needed. - Continue home Lantus dose on discharge. Bipolar I - Stable Hypothyroidism, POA, chronic. Active -Continuing home Levothyroxine 75 mcg daily HTN - Stable - Continue with current meds Morbid Obesity, POA, chronic. Active -BMI 41.4 -Diabetic constant carb/heart healthy diet Disposition: Patient to be discharged by cardiology. VTE Prophylaxis: Other (Patient immediately post Coronary catheterization) Resuscitation Status: CPR: Attempt Resuscitation Attending Statement Patient was seen and examined by me today. I confirmed pertinent physical exam findings and agree with physical exam as documented. I agree with overall assessment and plan of care as documented. Labs, radiology tests reviewed. Plan of care, medication side effects, home medication, diagnostic procedures and available alternatives were discussed and reviewed with the patient. All questions answered. Patient verbalized understanding, approved and agreed to plan of care. Lorena Melo DO August 20, 2016 18:02 Russ Zuleta MD August 20, 2016 19:00
== END 2016-08-20 14:25 | disposition home or self-care (01) | DRG 246 ==
LOC: SED 18:57 → CCU 19:50 → PCC 08-18 08:38
PROVIDERS: ADMIT Internal Medicine Cardiovascular Disease; ATTEND Internal Medicine Cardiovascular Disease
PROC: 027037Z Dilation of Coronary Artery, One Artery with Four or More Drug-eluting Intraluminal Devices, Percutaneous Approach (ICD-10-PCS; principal; 2016-08-17)
PROC: 4A023N7 Measurement of Cardiac Sampling and Pressure, Left Heart, Percutaneous Approach (ICD-10-PCS; 2016-08-17)
PROC: B2111ZZ Fluoroscopy of Multiple Coronary Arteries using Low Osmolar Contrast (ICD-10-PCS; 2016-08-17)
DX: I21.19 ST elevation (STEMI) myocardial infarction involving other coronary artery of inferior wall (principal); Z68.41 Body mass index [BMI] 40.0-44.9, adult; I10 Essential (primary) hypertension; E78.5 Hyperlipidemia, unspecified; E11.9 Type 2 diabetes mellitus without complications; Z87.891 Personal history of nicotine dependence; Z79.4 Long term (current) use of insulin; E66.01 Morbid (severe) obesity due to excess calories; I25.10 Atherosclerotic heart disease of native coronary artery without angina pectoris; E03.9 Hypothyroidism, unspecified; F31.9 Bipolar disorder, unspecified